=== PATIENT | female | born 1945 | race Caucasian/White ===

== ENCOUNTER 2022-05-01 15:04 | Emergency (ER) | payer BC, MEDICARE ==
[~2022-05-01] VITALS: Ht 154.9 cm; Wt 59.0 kg
[~2022-05-01 15:04] MED LIST: HYDR-4383 PO; NO HOME MEDS
[2022-05-01 16:01] LABS: BASOPHILS # (AUTO) 0.1 X10'3 (0-0.2); BASOPHILS % (AUTO) 0.9 % (0-1); EOSINOPHILS # (AUTO) 0.2 X10'3 (0-0.9); EOSINOPHILS % (AUTO) 2.5 % (0-6); HEMATOCRIT 44.4 % (35.0-45.0); LYMPHOCYTES # (AUTO) 1.9 X10'3 (1.1-4.8); LYMPHOCYTES % (AUTO) 29.3 % (21-51); MEAN CORPUSCULAR HEMOGLOBIN 29.9 PG (27.0-31.0); MEAN CORPUSCULAR HGB CONC 33.7 g/dL (33.0-36.5); MEAN CORPUSCULAR VOLUME 88.7 FL (78-98); MEAN PLATELET VOLUME 6.8 FL (7.4-10.4); MONOCYTES # (AUTO) 0.5 X10'3 (0-0.9); MONOCYTES % (AUTO) 7.1 % (2-12); NEUTROPHILS # (AUTO) 3.8 X10'3 (1.8-7.7); NEUTROPHILS % (AUTO) 60.2 % (42-75); PLATELET COUNT 303 X10'3 (140-440); RED BLOOD COUNT 5.01 X10'6 (4.20-5.60); RED CELL DISTRIBUTION WIDTH 12.9 % (11.5-14.5); WHITE BLOOD COUNT 6.4 X10'3 (4.5-11.0)
[2022-05-01 16:07] LABS: CLARITY,URINE SLIGHTLY CLOUDY (Clear); COLOR,URINE YELLOW (Yellow); GLUCOSE, URINE NEGATIVE (Neg); KETONES,URINE 40 mg/dl (Neg); LEUKOCYTE ESTERASE ,URINE NEGATIVE (Neg); NITRITES, URINE NEGATIVE (Neg); OCCULT BLOOD,URINE NEGATIVE (Neg); PROTEIN,URINE NEGATIVE (Neg); UA COLLECTION TYPE CLN CATCH MIDSTREAM; UROBILINOGEN,URINE 0.2 E.U/dL (0.2-1.0)
[2022-05-01 16:09] LABS: ALANINE AMINOTRANSFERASE 17 U/L (12-78); ALBUMIN 3.7 G/DL (3.4-5.0); ALKALINE PHOSPHATASE 84 IU/L (46-116); ANION GAP 8 (8-16); ASPARTATE AMINO TRANSFERASE 23 U/L (10-37); BILIRUBIN,TOTAL 0.5 MG/DL (0.1-1.0); BLOOD UREA NITROGEN 20 MG/DL (7-18); BUN/CREATININE RATIO 25.6 (6.6-38.0); CALCIUM 8.4 MG/DL (8.5-10.1); CHLORIDE 103 MMOL/L (99-107); CREATININE 0.78 MG/DL (0.40-0.90); GLUCOSE 101 MG/DL (70-104); LIPASE 166 U/L (73-393); POTASSIUM 3.3 MMOL/L (3.5-5.1); SODIUM 138 MMOL/L (135-145); TOTAL CARBON DIOXIDE 26.7 MMOL/L (24-32); TOTAL PROTEIN 7.3 G/DL (6.4-8.2); eGFR 72 ML/MIN
--- NOTE | 2022-05-01 16:09 | NUR ---
PER IHSAN BOND KEEP THIS PT IN ROOM UNTIL READY TO DISCHARGE OR BE ROOMED IN MAIN ER
[2022-05-01 16:20] LABS: MUCUS STRANDS MANY /LPF (Neg); SQUAMOUS EPITHELIAL CELL,UR MODERATE /LPF (FEW)
[2022-05-01 16:26] LABS: TRANSITIONAL EPI CELLS,URINE FEW /HPF
[2022-05-01 16:27] LABS: BACTERIA,URINE FEW /HPF (Neg); RBC,URINE 0-2 /HPF (0-2)
[2022-05-01] MEDS ORDERED: LIDO700A32 TOP (17:58)
[2022-05-01] MEDS ORDERED: NAPR-56 PO (17:58)
[2022-05-01] MEDS ORDERED: ORPH100T2 PO (17:58)
[2022-05-01] MEDS ORDERED: orphenadrine citrate 60mg/2ml inj. IM ONE (18:00)
[2022-05-01] MEDS ORDERED: ketorolac trometh inj. 60 MG/2 ML VIAL IM ONE (18:00)
--- NOTE | 2022-05-01 18:31 | NUR ---
report to deb for continuation of care.
--- NOTE | 2022-05-01 18:31 | NUR ---
report to deb for continuation of care.
[2022-05-01 18:43] VITALS: BP 160/89
== END 2022-05-01 18:44 | disposition home or self-care (01) ==
LOC: ER 15:05
DX: M48.54XA Collapsed vertebra, not elsewhere classified, thoracic region, initial encounter for fracture (principal); M48.56XA Collapsed vertebra, not elsewhere classified, lumbar region, initial encounter for fracture; M54.50 Low back pain, unspecified; M62.830 Muscle spasm of back; Z98.890 Other specified postprocedural states; Z90.710 Acquired absence of both cervix and uterus
CPT/HCPCS: 36415; 72128; 72131; 74176; 80053; 81001; 83690; 85025; 87088; 93005; 96372; 99285; J1885; J2360

== ENCOUNTER 2024-10-14 08:06 | Emergency (ER) | payer BC ==
[~2024-10-14 08:06] MED LIST changes: +LIDO-52 TOP; +ORPH100T4 PO
[2024-10-14 08:11] VITALS: BP 127/97; PULSE 84; RESP 18; TEMP 97.9; O2SAT 97
--- NOTE | 2024-10-14 08:47 | RADIOLOGY REPORT ---
CLINICAL INDICATION: KNEE PAIN TECHNIQUE: 4 radiographic views of the right knee were obtained. Comparison: None FINDINGS/IMPRESSION: There is no evidence of acute fracture or dislocation. The visualized joint space is well maintained. The alignment is anatomical. There is no radiopaque foreign body.
--- NOTE | 2024-10-14 09:14 | Physician Documentation ---
History of Present Illness ~ Chief Complaint: Bite-animal Stated Complaint: DOG BITE Time Seen by MD: 09:12 Primary Medical Doctor: NONE HPI 79-year-old female who presents to the emergency department reporting that she bit and knocked down by a neighbor's dog, causing her to fall onto the right knee. She does have a bite wound to the left inner thigh. She reports that the dog is up-to-date on vaccines. Tetanus within 5 years?: No Medication Reconciliation Allergies: Coded Allergies: No Known Allergies (Unverified , 10/14/24) Scheduled Amox Tr/Potassium Clavulanate (Augmentin 875-125 Tablet), 1 TAB PO Q12H Hydrocodone/Acetaminophen ([place] 5-325 Tablet), 1 TABLET PO Q4H Lidocaine (Lidoderm), 1 PATCH TOP DAILY Scheduled PRN Orphenadrine Citrate (Norflex), 1 TAB PO Q12H PRN PRN for muscle spasms Miscellaneous Medications Home Med List (No Home Medications), (Reported) Past Medical History Past Medical History: *MUSCULOSKELETAL* Past Surgical History: appendectomy, hysterectomy, orthopedic surgeries Alcohol Use: Occasionally Drug Use: none Lives In: Home Review of Systems ROS As stated above in the HPI, otherwise all systems are reviewed and negative. Physical Exam Vital Signs: Temperature: 97.9, Source: Temporal, Heart Rate: 84, Respiratory Rate: 18, BP: 127/97, Pulse Oximetry: 97 Oxygen Flow Rate: 0 Physical Exam General: Alert, no apparent distress. Neck: Full range of motion. Respiratory: Lungs clear, no respiratory distress. Chest: No accessory muscle use. Cardiovascular: Regular rate and rhythm, no murmurs. Gastrointestinal: Soft, nontender, nondistended. Bowels sounds present. Extremities: Reducing painful range of motion of the right knee with mild swelling but no ecchymosis present. Patient notes inability to bear weight due to pain. Neurologic: Oriented x4. Psychiatric: Normal mood and affect. Skin: Normal color, warm and dry. Wound left inner thigh, small puncture surrounded by ecchymosis. Progress Results/Orders Results/Orders Orders - LORI ENRIQUEZ NP Ortho Orders (10/14/24 ) Dressing Orders (10/14/24 09:30) Wound Care Orders (10/14/24 09:30) Completed Orders - LORI ENRIQUEZ NP Bacitracin Ointment (Bacitracin Ointment (10/14/24 09:30) Vital Signs 10/14/24 08:11 Temp 97.9 Pulse 84 Resp 18 B/P (MAP) 127/97 Pulse Ox 97 O2 Flow Rate 0 Medical Decision Making Additional Comment 79 yr old female whose main concern is right knee pain after being knocked down by neighbors dog that bit her left inner thigh. She was offered tetanus, but declined although she is not sure when her last tetanus vaccine was. The bite wound is a small puncture, we discussed why this should not be closed due to risk for infection. We discussed proper wound care. She will be treated prophylactically with Augmentin. For her knee, she was placed in a knee immobilizer. She has a walker at home, she can use this to keep weight off the knee. She will need to see her primary care provider and request a referral to ortho. X-ray reviewed and did not show signs of fracture, dislocation, foreign body. Departure Time of Disposition: 09:31 Disposition: HOME / SELF CARE / HOMELESS Impression: Primary Impression: Dog bite Qualified Codes: W54.0XXA - Bitten by dog, initial encounter Additional Impression: Knee pain Qualified Codes: M25.561 - Pain in right knee Discharge Instructions: Acute Knee Pain, Adult, Animal Bite, Adult Additional Instructions: You refused a tetanus shot today. See your primary care soon and request a referral to ortho. Keep the knee brace in place when you are up walking to help stabilize the knee joint. Walk with walker. Return if worse. Take the antibiotics for your dog bite as prescribed. Wash wound daily with soap and water and apply antibiotic ointment like bacitracin or neosporin. Referrals: NO PRIMARY CARE PROVIDER (PCP) Prescriptions Amox Tr/Potassium Clavulanate (Augmentin 875-125 Tablet) 1 Each Tablet 1 TAB PO Q12H for 7 Days, #14 TAB Prov: LORI ENRIQUEZ NP 10/14/24 Education Educated: Patient Educated regarding: diagnosis, treatment, prognosis, need for follow up Signature Scribe Signature: no scribe Attestation: The note accurately reflects work and decisions made by me.Lori Enriquez - PRIMO 10/14/24 09:43 LORI ENRIQUEZ NP Oct 14, 2024 09:14
[2024-10-14] MEDS ORDERED: AMOX-117 PO (09:32)
[2024-10-14] MEDS: bacitracin 15gm ointment TP ONE (09:49)
== END 2024-10-14 10:27 | disposition home or self-care (01) ==
LOC: ER 08:07
DX: S70.12XA Contusion of left thigh, initial encounter (principal); M79.89 Other specified soft tissue disorders; Z90.710 Acquired absence of both cervix and uterus; Z90.49 Acquired absence of other specified parts of digestive tract; W54.0XXA Bitten by dog, initial encounter; Y93.89 Activity, other specified; Y92.89 Other specified places as the place of occurrence of the external cause; Y99.8 Other external cause status
CPT/HCPCS: 29505; 73564; 99284; A6258; A6446; A6449